=== PATIENT | female | born 1950 | race Caucasian/White ===

== ENCOUNTER 2018-08-09 14:27 | Day surgery (SDC) | payer MEDICARE, SELFPAY ==
--- NOTE | 2018-08-09 | TEM_PTH ---
PATIENT: ZACK SLOAN [place]: [facility] [place][id number] AGE/SX: 68/F ROOM: RE08/09/[address]: Dr. Michi Gusman MD : 1950 BED: DIS: 08/09/2018 SPEC #: [id number] RECD: 08/10/18 09:33 STATUS: REI VINAY #: [id number] DARLENE: 08/09/18 00:[address]: Michi Gusman DEPT: SURGICAL PATHOLOGY RECD BY: Jose Arevalo ENTERED: 08/10/18 09:33 SP TYPE: TEMPORAL OTHR DR: MD Michelle Cooper PA Tissues: Temporal region Procedures: Elastin Stain (control) Special Stain Group II Surgery Specimen Level IV HEADER OPERATION: Temporal artery biopsy, left PRE-OP DIAGNOSIS: Left temporal arteritis TISSUE SUBMITTED: Left temporal artery biopsy MICROSCOPIC DIAGNOSIS Left temporal artery, biopsy: Consistent with giant cell arteritis. See microscopic description and comment. IRWIN:cheryl 08/13/18 COMMENT Elastic stain with matched control is used in the evaluation of the specimen. Clinical correlation and appropriate follow up are necessary. Results are reported to Dr. Gusman's office on 08/13/18. Case has been reviewed in consultation with Dr. Polk who concurs with the above diagnosis. IDC:ANGELITO MICROSCOPIC DESCRIPTION Slides are reviewed. The specimen shows a segment of blood vessel with moderate transmural chronic inflammatory cells infiltrates including giant cells. Mild periadventitial chronic inflammation is present. Focal obliteration of lumen and medial calcification of blood vessel wall are also noted. GROSS DESCRIPTION Received in fixative is one container labeled with the patient's name and designated temporal artery biopsy left. The specimen consists of a tubular piece of gross soft tissue measuring 1.8 cm in length and 0.3 cm in diameter. The entire specimen is submitted in one cassette. It will be serially sectioned at the time of embedding. / IRWIN:cheryl 08/10/18 TC:3 CPT: 17320, 04868
--- NOTE | 2018-08-09 14:44 | HP.PCM_ITS ---
Problem List (1) Headache Status: Acute History and Physical Date of Admission: 08/09/18 [facility] [address] [place], [place] [address] OFFICE VISIT Date of Service: 08/09/18 MR#: [id number] Acct: [id number] Name: ZACK SLOAN Rep #: [id number] : 1950 Provider: Anisha Craig PA-C Age/Sex: 68/F Location: [facility] Status: Signed Intake Vital Signs 08/09/18 Height 5 ft 6 in 08/09/18 Weight: 164 lb 08/09/18 Body Mass Index (BMI) 26.4 08/09/18 Blood Pressure 162/89 H 08/09/18 Blood Pressure Location Rt brachial 08/09/18 Blood Pressure Position Sitting 08/09/18 Respiratory Rate 14 08/09/18 Pulse Rate 72 08/09/18 Pulse Source Monitor 08/09/18 Temperature 98.3 F 08/09/18 Temperature Source Oral 08/09/18 Pulse Ox 100 08/09/18 Oxygen Delivery Method room air Intake Visit Reasons: Temporal Arteritis Utility Bill Collection Clerk Required: No Is patient in pain?: Yes (Left Yazdanism) Pain scale (1-10): 3 PFSH Medical History Headache (Acute) Weight loss (Acute) Surgical History H/O excision of mass (Acute) S/P hernia repair (Acute) Family History Father Arthritis Sister Kidney disease CVA (cerebral vascular accident) Hypertension Mother Hypertension Social History Smoking Status: Former smoker alcohol intake: current alcohol intake frequency: holidays/special occasions only substance use type: does not use caffeine: Yes frequency: does not exercise HPI HPI HPI: ZACK SLOAN is a 68 F who presents to the office today for HPI HPI Surgical H&P: Yes HPI: ZACK SLOAN is a 68 F who presents to the office today for loss of vision in left eye, left temporal pain. Patient woke up with these symptoms 4 weeks ago. She was noted to have right ear pain which transitioned to the left ear/side of head. Patient was evaluated by Dr. Manning who noted her eye exam showed worsening eyes. She then noted hazy fog in the left eye. As well as it was noted the patient had a left taoist lesion. She was sent to the senior engineering manager. Dr. Portillo evaluated this patient and noted nothing will need to be completed. She noted enlarged left temporal vein at that time. Patient was then sent to the PCP. Patient had a CT scan of the head and labs. Her sed rate was elevated at 34 and CRP was 5. Patient was recommended at that time to take her daily aspirin. Patient had been taking 2 aspirin every 4 hours up until the last 3 days. Patient then was evaluated by Dr. Blandon yesterday for her symptoms who noted this may be due to her missing teeth and her jaw is at an angle. Patient then called her eye doctor today because of vision changes in the left eye. She notes lateral half of her eye is black and she is seeing stars. Dr. Hilliard called our office requesting a temporal artery biopsy. ROS General General: Yes weight change; no appetite, fatigue, colon cancer, breast cancer or weakness HEENT HEENT: No difficulty swallowing, eye injury, eye surgery, swollen glands or hoarseness Endo Endocrine: No thyroid disease, diabetes mellitus, thyroid cancer, Hair loss, heat intolerance or cold intolerance Skin Skin: No rash or changing moles Breast Breast: No left breast lump, right breast lump, nipple discharge, breast pain, abnormal mammogram, abnormal US or breast enlargement Musc Musculoskeletal: No back problems, arthritis, rheumatoid arthritis, gout or joint pain Cardio Cardiovascular: Yes murmur; no pacemaker, heart disease, atrial fibrillation, high blood pressure, heart attack, heart stent, palpitations, shortness of breat with exertion or chest pain Psych Psychiatric: No depression, anxiety or hearing voices Resp Respiratory: No shortness of breath, No sleep apnea, No cough, No COPD, No asthma, No emphysema, No wheezing Gastro Gastrointestinal: No abdominal pain, No nausea or vomiting, No diarrhea, No constipation, No blood in stool, No acid reflux, No hemorrhoids, No ulcers, No gallbladder problem, No black,tarry stools Mario Hematologic: No blood thinners, No blood disorders, No bleeding, No anemia, No blood clots Neuro Neurologic: No system reviewed and no additional complaints, except as docu, No as per HPI, No abnormal walking, No abnormal hearing, No abnormal movements, No abnormal speech, No behavioral changes, No burning sensations, No confusion, No seizure-like activity, No unsteadiness, No dizziness, No localized weakness, No frequent falls, No headache(s), No lack of coordination, No loss of vision, No memory loss, No numbness, No other visual disturbances, No radiating pain, No restless legs, No sensory deficit, No fainting, No tingling, No tremor(s), No weakness, No other Exam Const General: cooperative, healthy appearing, comfortable, no acute distress HENMT Head: normal to inspection Neck Neck: normal visual inspection Chest Breast Palpation: No nipple discharge Resp Effort & Inspection: normal respiratory effort Auscultation: clear to auscultation bilaterally Cardio Heart Sounds: murmur GI Inspection: normal to inspection Skin Other: Left temporal lesion noted. Soft pulse of the left temporal artery Neuro General: normal light touch, pain and propioception Extrem General: normal to inspection Psych Appearance: grossly normal Affect: normal affect Assessment & Plan Problems 1. Temporal arteritis M31.[address] Gusman has also evaluated this patient. Dr. Gusman will plan to perform a left temporal artery biopsy. Procedure details, risks and benefits have been explained. Patient has had the opportunity to ask and have questions answered. Patient verbally understands and agrees with the plan. Coding Level of Care Code Off vis,new,level 3 Diagnoses Temporal arteritis M31.6 08/09/18 5342 <Electronically signed by Anisha Craig PA-C> Date Anisha Craig PA-C Cosigner Signature: Date (if applicable) CC: NASIM GIMENEZ ~ Code Visit Inpatient E&M: 45528 Init Hosp L1 - No charge
[2018-08-09 14:52] VITALS: BP 151/62; PULSE 77; RESP 18; TEMP 36.6; O2SAT 100; BMI 26.4
--- NOTE | 2018-08-09 15:22 | DCINST_ITS ---
Discharge Diet: Light diet - advance as tolerated - if you have questions about your diet instructions, please talk to you doctor. Discharge Activity: May Drive May shower in (days): 1 Lifting Restrictions: 10 pounds Call your doctor if your incision/area has: Continuous Slow Oozing, Sudden Increased Bleeding, Increased Pain/ Swelling, Increased Redness, Foul Smelling Discharge Call your doctor if you observe: Fever of 101 or Higher Suture Line Care: Avoid Pulling/Pushing, Avoid Pinching/Bending Additional Dressing/Incision Instructions:: You may remove your dressings tomorrow. You may carefully shower over your surgical glue. Pat dry but do not rub. Primary Care Physician: Michelle Ochoa PA [Primary Care Provider] - Test Results: Test results from this visit will be discussed in further detail at your follow- up appointment, if applicable. Please Follow Up With: Michi Gusman MD - [phone] When: My office will call with results
[2018-08-09] MEDS: Bupivacaine Mpf 0.5% 30 ML VIAL (15:37)
--- NOTE | 2018-08-09 16:28 | PCM.OPRPT ---
Report of Operation Date of Procedure: 08/09/18 Pre-Operative Diagnosis: Left temporal arteritis Post-Operative Diagnosis: Same Surgery/Procedure Performed:: Left temporal artery biopsy Description of Surgical Findings:: Timeout and informed consent was obtained. 68-year-old female sticking out from placement table. The left auricular area was clipper and Betadine prep. 1% lidocaine mixed 50-50 with 0.5% Marcaine was used as local anesthetic. A total of 18 cc was used. A vertical incision was made pre-auricular. Sharp dissection carried down through the subcutaneous tissue. The inflamed vein was identified this was dissected free and secured with hemoclips and then it became apparent that there was an inflammatory artery posterior to it. The artery appeared to be thrombosed superiorly. I utilized a Doppler and could not detect some soft flow inferiorly. Very carefully and tediously the artery was dissected free but admittedly this was extraordinarily difficult for a temporal artery. Where needed side branches were secured with hemoclips. There was some branching superiorly. I was not able to get a length of 4 cm however clinically this appeared to be consistent with a chronically inflamed thrombosed process. Were pertinent then after achieving as much length as I could I tied the vessel off with 4-0 Vicryl ligatures. The segment was excised and submitted as a specimen. Hemostasis was nicely intact. The wound was closed with a deep layer of interrupted 5-0 Vicryl and then a running septic or 5-0 Vicryl. Surgical glue was applied. This procedure was rather tedious taking approximately 1 hour of dissection. Sponge and instrument and needle counts were reported to the surgeon per correct. I notified Dr. Hilliard of the suspected positive findings and the patient has a steroid prescription pending. The patient will be notified of pathology results as soon as they are available Michi Gusman M.D., F.A.C.S. Type of Anesthesia:: Local
[2018-08-09 16:42] VITALS: BP 153/90; PULSE 100; RESP 18; TEMP 36.9; O2SAT 97
== END 2018-08-09 17:02 | disposition home or self-care (01) ==
LOC: SDC 14:30 → AC 14:34
PROVIDERS: Family Provider Physician Assistant; PCP Physician Assistant; Referring Provider Surgery; Visit Provider Surgery
PROC: (CPT 37609; principal; 2018-08-09 13:45)
DX: M31.6 Other giant cell arteritis (principal); Z87.891 Personal history of nicotine dependence
CPT/HCPCS: 37609; 88305; 88313

== ENCOUNTER 2019-12-23 14:03 | Emergency (ER) | payer MEDICARE, SELFPAY ==
[2019-12-23 14:06] VITALS: BP 151/90; PULSE 102; PULSE 105; RESP 16; TEMP 36.6; O2SAT 100; O2SAT 99; BMI 25.3
--- NOTE | 2019-12-23 14:26 | EKG12_ITS ---
Test Reason : ABD PAIN Blood Pressure : / mmHG Vent. Rate : 081 BPM Atrial Rate : 081 BPM P-R Int : 160 ms QRS Dur : 108 ms QT Int : 400 ms P-R-T Axes : 059 -20 052 degrees QTc Int : 464 ms Normal sinus rhythm Normal ECG Confirmed by RAMONA MCLEAN, AMAYA ([id number]), food editor GEOFFREY LUCIO ([id number]) on 12/25/2019 11:05:59 AM Referred By: JUAN Confirmed By:AMAYA GREENE MD
--- NOTE | 2019-12-23 14:27 | ED.VIS.GEN ---
History of Present Illness Chief Complaint: Abd Pain Narrative: Presents with chronic abdominal pain, she was seen at another ER and was found to have some distention of the sigmoid colon, she has no pain today although she is here because she feels slightly lightheaded, she has early satiety and she has decreased p.o. intake. She has increased weakness also. She is able to live by herself and perform most of her ADLs but is more weak than normal. She has no fever or chills she has no urinary symptoms she denies any chest pain shortness of breath or back pain. She has no tearing sensation she has no DVT or PE risk factors. She has no headache or vision changes. She has no focal deficits or speech difficulty. Past Medical History - Allergies and Home Meds Allergies/Adverse Reactions: Allergies RUBBER Adverse Reaction (Uncoded 12/23/19 14:06) MAKES MY SKIN TURN REAL NASTY PT STATES RUBBER AND NOT LATEX Primary Care Physician: Michelle Ochoa PA [Primary Care Provider] - Past Medical History: - - Hypertension Smoking Status: Former smoker Review of Systems All systems negative except as indicated General: Reports: - - Generalized weakness as in HPI. Denies: Fever Eyes: Denies: Visual changes - bilaterally Cardiovascular: Denies: Chest pain Respiratory: Reports: Dyspnea Gastrointestinal: Reports: Abdominal pain, - - No current abdominal pain. Denies: Nausea, Vomiting, Diarrhea Musculoskeletal: Denies: Myalgias, Arthralgias Skin: Denies: Rash, Wounds Neurological: Denies: Headache, Parasthesia, Numbness Allergy: Denies: Swelling of the mouth, Swelling of the tongue Physical Exam Vital Signs/Narrative: Vital Signs Temp Pulse Resp BP Pulse Ox 12/23/19 14:06 97.8 F 105 H 16 151/90 H 99 General: Well nourished, Well developed Head: Normocephalic, Atraumatic ENT: No rhinorrhea, Dry mucous membranes Neck: Supple Cardiovascular: Regular rate, Regular rhythm Respiratory: No distress, CTA bilaterally Abdomen: Soft, Nontender, Nondistended, No masses Back: Nontender Extremities: Nontender, No edema Skin: Normal color Neurological: Alert, Oriented x3, Cranial nerves II-XII grossly intact, Normal Strength, Normal Sensation ED Disposition - Plan for ED Patient: Referrals: Michelle Ochoa PA [Primary Care Provider] -
--- NOTE | 2019-12-23 14:39 | ED.RN ---
no old ekgs on file
[2019-12-23] MEDS: 0.9% Normal Saline 1,000 ML 1000 ML IV (15:28)
[2019-12-23 15:38] LABS: Absolute Lymphocyte Count 1.21 X10^3/uL (0.83-4.51); Absolute Neutrophil Count 7.9 X10^3/uL (2.0-7.7); Basophil# 0.02 X10^3/uL; Basophil% 0.2 % (0-1); Hematocrit 38.2 % (37-47); Lymphocyte # 1.21 X10^3/ul (4.0); Lymphocyte % 12.5 % (19-41); Mean Corpuscular Hgb 28.1 pg (27.0-32.0); Mean Corpuscular Volume 82.5 fL (81-99); Mean Platelet Vol. 9.6 fl (6.2-12.0); Monocyte# 0.52 X10^3/uL; Monocyte% 5.4 % (0-10); NRBC Flagged by Analyzer 0 % (0-5); Neutrophil % 81.5 % (47-70); Platelet Count 310 K/mm3 (150-450); RBC Distribution Width CV 12.5 % (11.6-14.6); RBC Distribution Width SD 37.9 fl (35.1-43.9); Red Blood Count 4.63 M/mm3 (4.2-5.4); White Blood Count 9.7 K/mm3 (4.4-11.0)
[2019-12-23 16:00] LABS: ALB/GLOB Ratio 1.2 RATIO (0.9-2.4); AST(SGOT) 17 U/L (15-37); Alanine Aminotransfer ALT/SGPT 34 U/L (13-56); Albumin, Serum 3.6 g/dL (3.2-5.0); Alkaline Phosphatase 71 U/L (45-117); Anion Gap 5 (5-15); BUN 17 mg/dL (7-18); BUN/Creat Ratio 22.1 RATIO (10-20); Calcium,Total 9.1 mg/dL (8.5-10.1); Chloride 99 mmol/L (98-107); Creatinine, Serum 0.77 mg/dL (0.55-1.02); EST Glomerular Filtration Rate 78 mL/min (>60); Est Glom Filt Rate - Afr Amer 95 mL/min (>60); Estimated Creatinine Clearance 46.43 ml/min; Globulin 3.1 g/dL (2.2-4.2); Glucose 113 mg/dL (74-106); Lipase 138 U/L (73-393); Potassium 3.1 mmol/L (3.5-5.1); Protein, Total 6.7 g/dL (6.4-8.2); Sodium Level 134 mmol/L (136-145)
--- NOTE | 2019-12-23 16:14 | ED.DEP ---
ED Disposition - Plan for ED Patient: Disposition: Home or Assisted Living Diagnosis: Abdominal pain Instructions: ED Acute Pain [facility] Referrals: Erick Maurice MD [NON-STAFF] - 3-5 Days
[2019-12-23 16:35] VITALS: BP 136/72; PULSE 83; RESP 18; O2SAT 97
== END 2019-12-23 16:45 | disposition home or self-care (01) ==
PROVIDERS: Emergency Provider Emergency Medicine; PCP Physician Assistant
DX: R10.9 Unspecified abdominal pain (principal); G89.29 Other chronic pain; R42 Dizziness and giddiness; R53.1 Weakness; R06.00 Dyspnea, unspecified; I10 Essential (primary) hypertension; Z79.899 Other long term (current) drug therapy; Z87.891 Personal history of nicotine dependence
CPT/HCPCS: 80053; 83690; 84484; 85025; 93005; 96360; 99283; J7030; A4216

== ENCOUNTER → 2021-02-24 14:27 | Outpatient (CLI) | payer MEDICARE, SELFPAY ==
[2021-02-24 18:02] LABS: ALB/GLOB Ratio 0.8 RATIO (0.9-2.4); AST(SGOT) 25 U/L (15-37); Alanine Aminotransfer ALT/SGPT 26 U/L (13-56); Albumin, Serum 3.3 g/dL (3.2-5.0); Alkaline Phosphatase 96 U/L (45-117); Anion Gap 7 (5-15); BUN 16 mg/dL (7-18); BUN/Creat Ratio 25.7 RATIO (10-20); Calcium,Total 9.3 mg/dL (8.5-10.1); Chloride 103 mmol/L (98-107); Creatinine, Serum 0.62 mg/dL (0.55-1.02); EST Glomerular Filtration Rate 100 mL/min (>60); Est Glom Filt Rate - Afr Amer 121 mL/min (>60); Glucose 83 mg/dL (74-106); Potassium 3.6 mmol/L (3.5-5.1); Protein, Total 7.3 g/dL (6.4-8.2); Rheumatoid Factor < 10.0 IU/mL (<15); Sodium Level 136 mmol/L (136-145)
[2021-02-24 18:21] LABS: Erythrocyte Sedimentation Rate 19 mm/hr (0-30)
[2021-02-24 18:22] LABS: Absolute Lymphocyte Count 2.05 X10^3/uL (0.83-4.51); Absolute Neutrophil Count 4.6 X10^3/uL (2.0-7.7); Basophil# 0.04 X10^3/uL; Basophil% 0.6 % (0-1); Eosinophil# 0.02 X10^3/uL; Eosinophils% 0.3 % (0-5); Hematocrit 38.5 % (37-47); Hemoglobin 12.7 g/dL (12.0-15.0); Lymphocyte # 2.05 X10^3/ul (0.83-4.51); Lymphocyte % 28.4 % (19-41); Mean Corpuscular Hgb 27.8 pg (27.0-32.0); Mean Corpuscular Volume 84.2 fL (81-99); Monocyte# 0.45 X10^3/uL; Monocyte% 6.2 % (0-10); NRBC Flagged by Analyzer 0 % (0-5); Neutrophil # 4.64 X10^3/uL (2.7-7.7); Neutrophil % 64.4 % (47-70); Platelet Count 321 K/mm3 (150-450); RBC Distribution Width CV 13.2 % (11.6-14.6); RBC Distribution Width SD 40.5 fl (35.1-43.9); Red Blood Count 4.57 M/mm3 (4.2-5.4); White Blood Count 7.2 K/mm3 (4.4-11.0)
[2021-02-27 08:05] LABS: CCP IgG Antibodies 9 units (0-19)
== END ==
PROVIDERS: PCP Physician Assistant; Referring Provider Internal Medicine Rheumatology; Visit Provider Internal Medicine Rheumatology
DX: M31.6 Other giant cell arteritis (principal); H54.62 Unqualified visual loss, left eye, normal vision right eye; M85.80 Other specified disorders of bone density and structure, unspecified site; I10 Essential (primary) hypertension; E78.5 Hyperlipidemia, unspecified; Q21.0 Ventricular septal defect
CPT/HCPCS: 36415; 80053; 85025; 85652; 86140; 86200; 86431

== ENCOUNTER 2021-07-05 10:40 | Outpatient (CLI) | payer MEDICARE, SELFPAY ==
[2021-07-05 12:26] LABS: Absolute Lymphocyte Count 1.84 X10^3/uL (0.83-4.51); Absolute Neutrophil Count 4.8 X10^3/uL (2.0-7.7); Basophil# 0.04 X10^3/uL; Basophil% 0.6 % (0-1); Eosinophil# 0.05 X10^3/uL; Eosinophils% 0.7 % (0-5); Lymphocyte # 1.84 X10^3/ul (0.83-4.51); Lymphocyte % 25.4 % (19-41); Mean Corp Hgb Conc 33.3 g/dL (32-36); Mean Corpuscular Hgb 27.7 pg (27.0-32.0); Mean Corpuscular Volume 83.2 fL (81-99); Mean Platelet Vol. 10.5 fl (6.2-12.0); Monocyte# 0.47 X10^3/uL; Monocyte% 6.5 % (0-10); NRBC Flagged by Analyzer 0 % (0-5); Neutrophil # 4.82 X10^3/uL (2.7-7.7); Neutrophil % 66.5 % (47-70); Platelet Count 266 K/mm3 (150-450); RBC Distribution Width CV 13.6 % (11.6-14.6); RBC Distribution Width SD 41.5 fl (35.1-43.9); Red Blood Count 5.05 M/mm3 (4.2-5.4); White Blood Count 7.2 K/mm3 (4.4-11.0)
[2021-07-05 12:33] LABS: Erythrocyte Sedimentation Rate 29 mm/hr (0-30)
[2021-07-05 13:06] LABS: Vitamin D,25 Hydroxy 39.3 ng/mL
[2021-07-05 13:08] LABS: AST(SGOT) 25 U/L (15-37); Alanine Aminotransfer ALT/SGPT 30 U/L (13-56); Albumin, Serum 3.7 g/dL (3.2-5.0); Alkaline Phosphatase 103 U/L (45-117); Anion Gap 6 (5-15); BUN 17 mg/dL (7-18); CRP 6.81 mg/L (0.0-3.0); Calcium,Total 9.3 mg/dL (8.5-10.1); Chloride 104 mmol/L (98-107); Creatinine, Serum 0.71 mg/dL (0.55-1.02); EST Glomerular Filtration Rate 86 mL/min (>60); Est Glom Filt Rate - Afr Amer 104 mL/min (>60); Globulin 3.7 g/dL (2.2-4.2); Glucose 88 mg/dL (74-106); Potassium 3.7 mmol/L (3.5-5.1); Protein, Total 7.4 g/dL (6.4-8.2); Sodium Level 139 mmol/L (136-145)
== END 2021-07-05 23:59 | disposition home or self-care (01) ==
PROVIDERS: PCP Physician Assistant; Referring Provider Internal Medicine Rheumatology; Visit Provider Internal Medicine Rheumatology
DX: M31.6 Other giant cell arteritis (principal); H54.62 Unqualified visual loss, left eye, normal vision right eye; M85.80 Other specified disorders of bone density and structure, unspecified site; I10 Essential (primary) hypertension; E78.5 Hyperlipidemia, unspecified; Q21.0 Ventricular septal defect; Z86.39 Personal history of other endocrine, nutritional and metabolic disease
CPT/HCPCS: 36415; 80053; 82306; 85025; 85652; 86140

== ENCOUNTER 2022-03-07 11:09 | Outpatient (CLI) | payer MEDICARE, SELFPAY ==
[2022-03-07 15:08] LABS: Absolute Lymphocyte Count 1.84 X10^3/uL (0.83-4.51); Absolute Neutrophil Count 4.6 X10^3/uL (2.0-7.7); Basophil# 0.05 X10^3/uL; Basophil% 0.7 % (0-1); Eosinophil# 0.08 X10^3/uL; Eosinophils% 1.1 % (0-5); Hemoglobin 14.1 g/dL (12.0-15.0); Lymphocyte # 1.84 X10^3/ul (0.83-4.51); Lymphocyte % 26.1 % (19-41); Mean Corp Hgb Conc 33.6 g/dL (32-36); Mean Corpuscular Hgb 28.8 pg (27.0-32.0); Mean Corpuscular Volume 85.9 fL (81-99); Mean Platelet Vol. 10.4 fl (6.2-12.0); Monocyte# 0.48 X10^3/uL; Monocyte% 6.8 % (0-10); NRBC Flagged by Analyzer 0 % (0-5); Neutrophil # 4.58 X10^3/uL (2.7-7.7); Neutrophil % 65.2 % (47-70); Platelet Count 238 K/mm3 (150-450); RBC Distribution Width SD 40.6 fl (35.1-43.9); Red Blood Count 4.89 M/mm3 (4.2-5.4)
[2022-03-07 15:20] LABS: ALB/GLOB Ratio 1.3 RATIO (0.9-2.4); AST(SGOT) 20 U/L (15-37); Alanine Aminotransfer ALT/SGPT 30 U/L (13-56); Albumin, Serum 3.7 g/dL (3.2-5.0); Alkaline Phosphatase 78 U/L (45-117); Anion Gap 4 (5-15); BUN 18 mg/dL (7-18); BUN/Creat Ratio 26.5 RATIO (10-20); CRP < 2.90 mg/L (0.0-3.0); Chloride 105 mmol/L (98-107); Creatinine, Serum 0.68 mg/dL (0.55-1.02); EST Glomerular Filtration Rate 90 mL/min (>60); Est Glom Filt Rate - Afr Amer 109 mL/min (>60); Globulin 2.8 g/dL (2.2-4.2); Glucose 88 mg/dL (74-106); Potassium 4.1 mmol/L (3.5-5.1); Protein, Total 6.5 g/dL (6.4-8.2); Sodium Level 140 mmol/L (136-145)
[2022-03-07 15:21] LABS: Erythrocyte Sedimentation Rate 12 mm/hr (0-30)
== END 2022-03-07 23:59 | disposition home or self-care (01) ==
PROVIDERS: PCP Physician Assistant; Referring Provider Internal Medicine Rheumatology; Visit Provider Internal Medicine Rheumatology
DX: Q21.0 Ventricular septal defect (principal); M31.6 Other giant cell arteritis; H54.62 Unqualified visual loss, left eye, normal vision right eye; M85.80 Other specified disorders of bone density and structure, unspecified site; I10 Essential (primary) hypertension; E78.5 Hyperlipidemia, unspecified
CPT/HCPCS: 36415; 80053; 85025; 85652; 86140

== ENCOUNTER → 2022-11-28 | Outpatient (CLI) | payer MEDICARE, SELFPAY ==
[2022-11-28 12:50] LABS: Absolute Lymphocyte Count 2.03 X10^3/uL (0.83-4.51); Absolute Neutrophil Count 3.6 X10^3/uL (2.0-7.7); Basophil# 0.05 X10^3/uL; Basophil% 0.8 % (0-1); Eosinophils% 1.6 % (0-5); Hematocrit 42.2 % (37-47); Hemoglobin 13.6 g/dL (12.0-15.0); Lymphocyte # 2.03 X10^3/ul (0.83-4.51); Lymphocyte % 32.3 % (19-41); Mean Corp Hgb Conc 32.2 g/dL (32-36); Mean Corpuscular Hgb 28.3 pg (27.0-32.0); Mean Corpuscular Volume 87.7 fL (81-99); Mean Platelet Vol. 10.9 fl (6.2-12.0); Monocyte# 0.52 X10^3/uL; Monocyte% 8.3 % (0-10); NRBC Flagged by Analyzer 0 % (0-5); Neutrophil # 3.58 X10^3/uL (2.7-7.7); Neutrophil % 56.8 % (47-70); Platelet Count 242 K/mm3 (150-450); RBC Distribution Width CV 12.9 % (11.6-14.6); RBC Distribution Width SD 41.4 fl (35.1-43.9); Red Blood Count 4.81 M/mm3 (4.2-5.4); White Blood Count 6.3 K/mm3 (4.4-11.0)
[2022-11-28 12:51] LABS: Erythrocyte Sedimentation Rate 10 mm/hr (0-30)
[2022-11-28 14:06] LABS: ALB/GLOB Ratio 1.1 RATIO (0.9-2.4); AST(SGOT) 23 U/L (15-37); Alanine Aminotransfer ALT/SGPT 29 U/L (13-56); Albumin, Serum 3.7 g/dL (3.2-5.0); Alkaline Phosphatase 74 U/L (45-117); Anion Gap 6 (5-15); BUN 22 mg/dL (7-18); BUN/Creat Ratio 31.6 RATIO (10-20); CRP < 2.90 mg/L (0.0-3.0); Calcium,Total 8.8 mg/dL (8.5-10.1); Chloride 108 mmol/L (98-107); Cholesterol 212 mg/dL (200); EST Glomerular Filtration Rate 87 mL/min (>60); Est Glom Filt Rate - Afr Amer 106 mL/min (>60); Globulin 3.3 g/dL (2.2-4.2); Glucose 86 mg/dL (74-106); High Density Lipoprotein 60 mg/dL; Potassium 3.5 mmol/L (3.5-5.1); Sodium Level 139 mmol/L (136-145); Triglycerides 78 mg/dL; Very Low Density Lipoprotein 16 mg/dL (5-40)
[2022-11-28 20:48] LABS: Vitamin D,25 Hydroxy 44.5 ng/mL
== END | disposition home or self-care (01) ==
PROVIDERS: PCP Physician Assistant; Referring Provider Internal Medicine Rheumatology; Visit Provider Internal Medicine Rheumatology
DX: M31.6 Other giant cell arteritis (principal); Q21.0 Ventricular septal defect; Z86.39 Personal history of other endocrine, nutritional and metabolic disease; E78.5 Hyperlipidemia, unspecified; E55.9 Vitamin D deficiency, unspecified
CPT/HCPCS: 36415; 80053; 80061; 82306; 85025; 85652; 86140

== ENCOUNTER 2023-07-24 10:53 | Outpatient (CLI) | payer MEDICARE, SELFPAY ==
[2023-07-24 15:49] LABS: Absolute Lymphocyte Count 1.61 X10^3/uL (0.83-4.51); Absolute Neutrophil Count 4.2 X10^3/uL (2.0-7.7); Basophil# 0.06 X10^3/uL; Basophil% 0.9 % (0-1); Eosinophil# 0.07 X10^3/uL; Eosinophils% 1.1 % (0-5); Hematocrit 41.4 % (37-47); Hemoglobin 13.9 g/dL (12.0-15.0); Lymphocyte # 1.61 X10^3/ul (0.83-4.51); Lymphocyte % 25.4 % (19-41); Mean Corp Hgb Conc 33.6 g/dL (32-36); Mean Corpuscular Hgb 28.7 pg (27.0-32.0); Mean Corpuscular Volume 85.4 fL (81-99); Mean Platelet Vol. 11.3 fl (6.2-12.0); Monocyte# 0.44 X10^3/uL; Monocyte% 6.9 % (0-10); NRBC Flagged by Analyzer 0 % (0-5); Neutrophil # 4.16 X10^3/uL (2.7-7.7); Neutrophil % 65.5 % (47-70); Platelet Count 223 K/mm3 (150-450); RBC Distribution Width CV 13.2 % (11.6-14.6); RBC Distribution Width SD 40.9 fl (35.1-43.9); Red Blood Count 4.85 M/mm3 (4.2-5.4); White Blood Count 6.4 K/mm3 (4.4-11.0)
[2023-07-24 16:06] LABS: Vitamin D,25 Hydroxy 50.7 ng/mL
[2023-07-24 16:09] LABS: Erythrocyte Sedimentation Rate 8 mm/hr (0-30)
[2023-07-24 16:13] LABS: Cholesterol 203 mg/dL (200); High Density Lipoprotein 58 mg/dL; Triglycerides 73 mg/dL; Very Low Density Lipoprotein 15 mg/dL (5-40)
[2023-07-24 16:23] LABS: ALB/GLOB Ratio 1.2 RATIO (0.9-2.4); AST(SGOT) 24 U/L (15-37); Alanine Aminotransfer ALT/SGPT 27 U/L (13-56); Alkaline Phosphatase 73 U/L (45-117); Anion Gap 6 (5-15); BUN 23 mg/dL (7-18); BUN/Creat Ratio 29.1 RATIO (10-20); CRP < 2.90 mg/L (0.0-3.0); Calcium,Total 9.5 mg/dL (8.5-10.1); Chloride 106 mmol/L (98-107); Creatinine, Serum 0.79 mg/dL (0.55-1.02); EST Glomerular Filtration Rate 75 mL/min (>60); Est Glom Filt Rate - Afr Amer 91 mL/min (>60); Globulin 3.2 g/dL (2.2-4.2); Glucose 90 mg/dL (74-106); Potassium 3.3 mmol/L (3.5-5.1); Protein, Total 7.2 g/dL (6.4-8.2); Sodium Level 139 mmol/L (136-145)
== END 2023-07-24 23:59 | disposition home or self-care (01) ==
PROVIDERS: PCP Physician Assistant; Referring Provider Internal Medicine Rheumatology; Visit Provider Internal Medicine Rheumatology
DX: M31.6 Other giant cell arteritis (principal); E78.5 Hyperlipidemia, unspecified; Z86.39 Personal history of other endocrine, nutritional and metabolic disease
CPT/HCPCS: 36415; 80053; 80061; 82306; 85025; 85652; 86140